=== PATIENT | female | born 1965 | race African-American/Black ===

== ENCOUNTER 2017-04-15 16:04 | Emergency (ER) | payer MEDICAID ==
[~2017-04-15] VITALS: Ht 162.6 cm; Wt 59.0 kg
[~2017-04-15 16:04] MED LIST: PAXIL; TRAZODONE
[2017-04-15] MEDS ORDERED: IBUPROFEN 600MG TABLET PO ONE (17:00)
[2017-04-15 17:03] VITALS: BP 130/90
== END 2017-04-15 17:37 | disposition home or self-care (01) ==
LOC: ER 16:21
DX: H57.13 Ocular pain, bilateral (principal)
CPT/HCPCS: 99283

== ENCOUNTER 2018-09-21 02:35 | Emergency (ER) | payer MEDICAID ==
[~2018-09-21] VITALS: Ht 157.5 cm; Wt 91.0 kg
[2018-09-21 03:13] LABS: CLARITY URINE CLOUDY (CLEAR); COLOR URINE DARK YELLOW (YELLOW); KETONES URINE 2+ (NEGATIVE); LEUKOCYTE ESTERASE URINE TRACE (NEGATIVE); NITRITE URINE NEGATIVE (NEGATIVE); OCCULT BLOOD URINE 2+ (NEGATIVE); PH URINE 5.5 (4.5-8.0); PROTEIN URINE TRACE (NEGATIVE); SPECIFIC GRAVITY URINE 1.033 (1.005-1.030)
[2018-09-21 03:25] LABS: BASOPHILS % 1.1 % (0.0-2.0); EOSINOPHILS % 1.3 % (0.0-5.0); HEMATOCRIT. 38.3 % (36.0-48.0); LYMPHOCYTES % 28.9 % (20.0-50.0); MEAN CORPUSCULAR HEMOGLOBIN 30.1 pg (28.0-32.0); MEAN CORPUSCULAR VOLUME 89.1 fL (81.0-99.0); MEAN PLATELET VOLUME 9.4 fl (7.4-10.4); MONOCYTES % 6.9 % (2.0-8.0); NEUTROPHILS % 61.8 % (40.0-76.0); PLATELET 302 x1000/uL (130-400); RED CELL DISTRIBUTION WIDTH 15.2 % (11.6-14.6)
[2018-09-21 03:26] LABS: CANNABINOID URINE SCREEN NEGATIVE (NEGATIVE)
[2018-09-21 03:27] LABS: *AMPHETAMINES SCREEN URINE NEGATIVE (NEGATIVE); *BARBITURATES SCREEN URINE NEGATIVE (NEGATIVE); *BENZODIAZEPINES SCREEN URINE NEGATIVE (NEGATIVE); *COCAINE SCREEN URINE NEGATIVE (NEGATIVE); METHADONE URINE SCREEN NEGATIVE (NEGATIVE); OPIATES URINE SCREEN NEGATIVE (NEGATIVE)
[2018-09-21 03:28] LABS: PHENCYCLIDINE URINE SCREEN NEGATIVE (NEGATIVE)
[2018-09-21 03:30] LABS: CHLORIDE 107 mEq/L (98-107)
[2018-09-21 03:35] LABS: ETHANOL BLOOD < 10 mg/dL
[2018-09-21] MEDS: OLANZAPINE 5MG TABLET ODT PO SCH ×3 (03:56→22:17)
[2018-09-21] MEDS ORDERED: OLANZAPINE 10MG TABLET PO STA (21:55)
[2018-09-22] MEDS ORDERED: OLANZAPINE 5MG TABLET ODT PO ONE (11:00)
[2018-09-22] MEDS ORDERED: IBUPROFEN 600MG TABLET PO ONE (11:00)
[2018-09-22] MEDS ORDERED: IBUPROFEN 800MG TABLET PO ONE (22:45)
[2018-09-23] MEDS ORDERED: IBUPROFEN 600MG TABLET PO ONE ×2 (03:45→14:15)
[2018-09-23] MEDS: OLANZAPINE 5MG TABLET ODT PO SCH ×2 (09:03→22:14)
[2018-09-23] MEDS ORDERED: LORAZEPAM 1MG TABLET PO ONE ×2 (14:30→20:45)
[2018-09-24] MEDS ORDERED: LORAZEPAM 1MG TABLET PO ONE (08:45)
[2018-09-24] MEDS: OLANZAPINE 5MG TABLET ODT PO SCH ×2 (10:06→10:12)
[2018-09-24] MEDS ORDERED: ACETAMINOPHEN 325MG TABLET PO ONE (18:15)
[2018-09-24] MEDS ORDERED: LORAZEPAM 0.5MG TABLET PO ONE (18:45)
[2018-09-24] MEDS ORDERED: LORAZEPAM 0.5MG TABLET PO NR (19:15)
[2018-09-24] MEDS ORDERED: ACETAMINOPHEN 325MG TABLET PO NR (19:15)
[2018-09-25 01:20] VITALS: BP 131/77
== END 2018-09-25 02:16 ==
LOC: ER 02:35
DX: F23 Brief psychotic disorder (principal); S82.391A Other fracture of lower end of right tibia, initial encounter for closed fracture; R45.851 Suicidal ideations; Z91.14 Patient's other noncompliance with medication regimen; X58.XXXA Exposure to other specified factors, initial encounter; Y93.89 Activity, other specified; Y92.9 Unspecified place or not applicable
CPT/HCPCS: 36415; 73610; 80305; 80307; 80320; 80329; 82962; 99284; G0480